=== PATIENT | female | born 1965 | race Caucasian/White ===

== ENCOUNTER 2017-03-11 08:15 | Inpatient (IN) ==
--- NOTE | 2017-03-10 21:51 | Discharge Summary ---
<SuzannemelissaLaura L - Last Filed: 03/10/17 21:47> Date of Encounter: 03/10/17 - Discharge Diagnosis (1) Pain from implanted hardware Priority: Primary Status: Acute Qualifiers: Encounter type: initial encounter Qualified Code(s): T85.848A - Pain due to other internal prosthetic devices, implants and grafts, initial encounter (2) HTN (hypertension) Priority: Secondary Status: Chronic Qualifiers: Hypertension type: essential hypertension Qualified Code(s): I10 - Essential (primary) hypertension (3) HLD (hyperlipidemia) Priority: Secondary Status: Chronic Qualifiers: Hyperlipidemia type: unspecified Qualified Code(s): E78.5 - Hyperlipidemia , unspecified (4) Anxiety Priority: Secondary Status: Chronic (5) Overactive bladder Priority: Secondary Status: Chronic - Discharge Medications Home Medications: Citalopram Hydrobromide [Citalopram HBr] 40 mg PO DAILY 09/23/16 [History] Cyclobenzaprine [Flexeril] 10 mg PO TID 09/23/16 [History] Furosemide [Lasix] 20 mg PO DAILY 09/23/16 [History] Loratadine 1 tab PO DAILY 09/23/16 [History] Losartan [Cozaar] 25 mg PO DAILY 09/23/16 [History] Lovastatin 40 mg PO HS 09/23/16 [History] Metoprolol [Lopressor] 25 mg PO BID 09/23/16 [History] Montelukast [Singulair] 10 mg PO DAILY 09/23/16 [History] Solifenacin Succinate [Vesicare] 10 mg PO DAILY 09/23/16 [History] Aspirin Enteric Coated [Aspirin EC] 325 mg PO DAILY #21 tablet.dr 03/10/17 [Rx] ClonazePAM [Clonazepam] 1 mg PO HS #5 tab.rapdis 03/10/17 [Rx] OxyCODONE Immed Rel [Roxicodone 5 MG] 5 - 10 mg PO Q6HR PRN #40 tablet 03/10/17 [Rx] Acetaminophen w/Cod 300-30 mg [Tylenol w/Codeine #3] 1 each PO Q8HR PRN [History] Aspirin [Lo-Dose Aspirin EC] 81 mg PO DAILY 03/11/17 [History] Calcium Carbonate/Vitamin D3 [Calcium 500+D Tablet Chew] 1 each PO DAILY [History] Cholecalciferol (D-3) [Vitamin D] 1,000 unit PO DAILY 03/11/17 [History] ClonazePAM [Klonopin] 1 mg PO BID PRN 03/11/17 [History] Glucosamine Sulfate Dipot Chlr [Glucosamine] 1,000 mg PO DAILY 03/11/17 [History ] Potassium Chloride [Klor-Con 10] 10 meq PO DAILY 03/11/17 [History] Allergies/Adverse Reactions: Allergies No Known Allergies Allergy (Verified 03/11/17 10:01) Primary care physician: Samanta Bowman - Patient Status Disposition: Home, Self-Care Condition: Good - Discharge Instructions Follow Up With: Ludwig Pickett MD [Partnered Physician] - 04/09/17 8:15 am Samanta Bowman MD [Primary Care Provider] - 03/25/17 9:45 am Laura Rae PAC [Physician Chief Science Officer] - 03/21/17 11:15 am - Hospital Course Hospital course: Ms. Solomon is a 52 year old female - Time Spent with Patient Total time spent providing and/or coordinating discharge services: <Ludwig Pickett - Last Filed: 03/13/17 07:59> Date of Encounter: 03/13/17 Time of Encounter: 07:58 - Discharge Diagnosis (1) Obesity, morbid, BMI 40.0-49.9 Priority: Secondary Status: Chronic (2) Pain from implanted hardware Priority: Primary Status: Acute Qualifiers: Encounter type: subsequent encounter Qualified Code(s): T85.848D - Pain due to other internal prosthetic devices, implants and grafts, subsequent encounter (3) HTN (hypertension) Priority: Secondary Status: Chronic Qualifiers: Hypertension type: essential hypertension Qualified Code(s): I10 - Essential (primary) hypertension (4) HLD (hyperlipidemia) Priority: Secondary Status: Chronic Qualifiers: Hyperlipidemia type: unspecified Qualified Code(s): E78.5 - Hyperlipidemia , unspecified (5) Anxiety Priority: Secondary Status: Chronic (6) Overactive bladder Priority: Secondary Status: Chronic Primary care physician: Samanta Bowman - Patient Status Overall status at discharge: patient is progressing back to baseline - Hospital Course Hospital course: Ms. Solomon is a 52 year old female The patient had an uneventful postoperative course. They received antibiotics and physical therapy and were discharged in stable condition. There will follow -up in the office in 2 weeks. Aspirin DVT prophylaxis - Time Spent with Patient Total time spent providing and/or coordinating discharge services:
[2017-03-11] MEDS ORDERED: CeFAZolin Pre 2,000 MG/100 ML 2,000 MG/100 ML BAG IVPB ONE (08:36)
[2017-03-11] MEDS ORDERED: Ringers Solution, Lactated 1,000 ML IVC SCH ×2 (08:45→13:52)
--- NOTE | 2017-03-11 09:04 | History & Physical Report ---
Date of Encounter: 03/11/17 Time of Encounter: 09:04 24 Hour HP Update - Instructions Instructions: If the History and Physical is less than 30 days old and was completed prior to A.M. admission and or procedure and has NOT been updated on calendar day of procedure please complete this update prior to performing procedure. - Update Patient reports changes in Medical Condition: No Changes in examination, assessment, or condition: No Changes in Medication: No Preop tests/diagnostics Reviewed: Yes Surgery Remains Indicated: Yes Consent for Planned Operative Procedure(s) Verified: Yes - Pre-Operative Checklist Preoperative Checklist Indicated: No Prophylactic Antibiotic Ordered: Yes Is VTE Prophylaxis Indicated?: Yes
[2017-03-11] MEDS ORDERED: Famotidine 20 MG/2 ML VIAL IVP ONE (09:14)
[2017-03-11] MEDS ORDERED: Gabapentin 300 MG CAPSULE PO ONE (09:15)
--- NOTE | 2017-03-11 09:28 | Anesthesia Evaluation PreOp ---
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) Other Medical History: Diabetes Type II, GERD, Other (Morbid Obesity) Anesthesia History: No Prior Anesthetic Complications : No Alcohol Use: none Drug use: none Medications and Allergies Citalopram Hydrobromide [Citalopram HBr] 40 mg PO DAILY 09/23/16 [History] Cyclobenzaprine [Flexeril] 10 mg PO TID 09/23/16 [History] Furosemide [Lasix] 20 mg PO DAILY 09/23/16 [History] Gabapentin [Neurontin] 200 mg PO TID 09/23/16 [History] Loratadine [Loratadine] 1 tab PO DAILY 09/23/16 [History] Losartan [Cozaar] 25 mg PO DAILY 09/23/16 [History] Lovastatin 40 mg PO HS 09/23/16 [History] Meloxicam [Mobic] 7.5 mg PO DAILY #10 tablet 09/23/16 [Rx] Metoprolol [Lopressor] 25 mg PO BID 09/23/16 [History] Montelukast [Singulair] 10 mg PO DAILY 09/23/16 [History] Solifenacin Succinate [Vesicare] 10 mg PO DAILY 09/23/16 [History] Aspirin Enteric Coated [Aspirin EC] 325 mg PO DAILY #21 tablet. 03/10/17 [Rx] ClonazePAM [Clonazepam] 1 mg PO HS #5 tab.rapdis 03/10/17 [Rx] OxyCODONE Immed Rel [Roxicodone 5 MG] 5 - 10 mg PO Q6HR PRN #40 tablet 03/10/17 [Rx] Allergies No Known Allergies Allergy (Verified 07/20/16 12:56) - Meds/Allergy Pre-op Review Medications Reviewed: Yes Allergies Reviewed: Yes Beta Blockers on Current Med List: Yes (Took today 0700) Anesthesia Results - Imaging EKG: report reviewed (SR) Anesthesia Exam O2 Sat Height 1.65 m Height 1.65 m Height 1.65 m Weight 130.181 kg Weight 130.181 kg Weight 130.181 kg O2 Sat by Pulse Oximetry 95 Vital Signs Temp Pulse Resp BP Pulse Ox 98.6 F 62 18 121/73 95 03/11/17 08:36 03/11/17 08:36 03/11/17 08:36 03/11/17 08:36 03/11/17 08:36 Height: 5'5 Weight: 287 lbs NPO (# of Hours): MN Pain Scale: 0 - HEENT Pupil (Motor): Pupils equal, EOMI Mallampati: III Teeth: Normal Oral Opening: Less than or equal to 3 - RD SCIENTIST RD SCIENTIST Motor: Normal RUE, Normal LUE, Normal RLE, Normal LLE, Normal Face RD SCIENTIST Sensory: Normal: RUE, RLE, LLE, Face, Deficit: LUE - Cardiac Rhythm: Regular Murmur: None JVD: No Carotid Bruit: No - Pulmonary Breath Sounds: bilateral Clear Respiratory Effort: Symmetrical Anesthesia Assess/Plan ASA Score: 3 (MO DM HTN Chol Gerd) Modified Yolis Scale for Level of Consciousness: Cooperative, oriented, and tranquil Anesthetic Plan: General, Regional Monitoring Plan: Standard Monitors Recovery Plan: PACU (Discussed GA and RA, agrees to proceed)
[2017-03-11] MEDS ORDERED: ROPIVACAINE HCL/PF 0.5% 30 ML VIAL ONE (10:01)
[2017-03-11] MEDS ORDERED: Tetracaine/PF 20 MG/2 ML AMPUL ONE (10:01)
[2017-03-11] MEDS ORDERED: Bupivacaine/Clonidine Syringe 1 EACH SYRINGE ONE (10:02)
--- NOTE | 2017-03-11 10:31 | Anesthesia Procedures ---
Date of Encounter: 03/11/17 Time of Encounter: 10: Procedures: Anesthesia - Nerve Block Procedure Date: 03/11/17 Time: 10: Allergies/Adv Reactions: [id number] Pre-op Diagnosis: L painful total knee Surgical Procedure: L TKA, revision Checklist: Correct Patient Identifier, Correct procedure, History checked Correct side: Left Blood Thinner: No Monitor Applied: EKG, BP, Pulse Oximetry Supplemental Oxygen via Nasal Cannula (L/min): 3 Sedation: Versed (mg): 2 Sedation: Fentanyl (mcg): 100 Indication: Post Op Analgesia (Dr. Pickett) Pre-op Neuro Deficits: No Block Type: Femoral, Other (iPACK) Catheter placed: No Sterile Technique: Yes Ultrasound used: Yes Anatomy identified: Yes Visual spread of Local: Yes Neuro Stimulation: No Blood on Needle Aspiration: No Smooth Injection of Local: Yes Pain with Injection of Local: No Prep: Chlorhexadine Needle: 22 x 50 mm Stimuplex, 21 x 100 mm Stimuplex Local: 0.25% Bupivicaine w/Clonidine 20 mcg/cc (20mL), Ropivacaine (0.5%, 30mL) Number of Attempts: 1 Complications: None/effective block Vitals: please see JAKE Stephen's electronic documentation for VS
[2017-03-11] MEDS ORDERED: Ondansetron 4 MG/2 ML VIAL IVP PRN (10:35)
[2017-03-11] MEDS ORDERED: *HR* Labetalol 20 MG/4 ML SYRINGE IVP PRN (10:35)
[2017-03-11] MEDS ORDERED: *HR* HYDROmorphone (PF) 1 MG/ML SYRINGE IVP PRN (10:35)
[2017-03-11] MEDS ORDERED: Lidocaine -MPF 2% 2 ML VIAL ONE (11:06)
[2017-03-11] MEDS ORDERED: *HR* Midazolam HCl 2 MG/2 ML VIAL ONE (11:06)
[2017-03-11] MEDS ORDERED: *HR* Succinylcholine 200 MG/10 ML VIAL IVP ONE (11:06)
[2017-03-11] MEDS ORDERED: *HR* FentaNYL (PF) 100 MCG/2 ML VIAL ONE (11:06)
[2017-03-11] MEDS ORDERED: *HR* Propofol 200 MG/20 ML VIAL IVP ONE ×2 (11:06→12:01)
[2017-03-11] MEDS ORDERED: ceFAZolin 1,000 MG in D5% in Water (Mini-Bag+) 100 ML IVPB ONE (11:18)
--- NOTE | 2017-03-11 11:49 | Orthopedic Operative Note ---
Date of procedure: 03/11/17 Pre-op diagnosis: Painful left total knee Post-op diagnosis: same Procedure: Procedure: Left revision total knee Estimated blood loss: 200 mL Hardware: Biomet SS K 60 left femur, 5 mm distal lateral augment 16 x 120 stem, 71 stem tibia, 12 x 80 stem. 12 constrained Yane, 6 mm medial augment, Exam Under anesthesia: Full extension and flexion to 90 degrees significant varus valgus instability Procedural Notes: Unstable total knee, aseptic loosening tibia. Operative procedure: The patient was brought to the operating room and placed on the operating room table. After general anesthesia was administered the operative knee was examined. Findings were noted in the exam under anesthesia. The operative extremity was prepped and draped in sterile surgical fashion. The patient received IV antibiotics prior to skin incision. A standard midline incision was made centered over the patella through the old incision. The incision was made through the skin and subcutaneous tissue. A medial parapatellar tendon approach was performed. Care was taken to preserve tissue along the medial aspect of the patella. And to protect the patella tendon. The deep MCL was released off the medial tibia. The infra patella fat pad was excised. Fluid was encountered this was normal joint fluid, Cultures were obtained and gram . The knee was brought into flexion the poly-was removed. The interface between the patient's femoral component and distal femur were disrupted with a osteotome and oscillating saw. Femoral component was removed removed. Attention was then turned to the tibial component. The same technique was used to remove the tibial component by disrupting the interface between the patient' s tibial component and the patients proximal tibia. The tibial component was removed. The tibia was sized to a 71 it was reamed up to a 12 x 80. Trial had good fit and fixation with a 6 mm medial augment.. The femur was sized to a 60, was reamed up to a 16 x 120. The finishing guide was seated and the box cut was made. The trial had good fit and fixation with a 5 mm distal lateral augment.. Both trial components were seated and the 12 constrained Yane was seated and secured. The knee had full flexion and full extension with no instability. Patella had excellent patella tracking and no abnormal wear. The trial components were removed. The knee sat for 2 minutes with a Betadine saline solution. It was irrigated out with 2 L of pulse irrigation. The components were assembled on the back table, the tibia cemented first followed by the femur. The 12 constrained liner was seated and secure. The knee was brought to full extension while the cement hardened. After the cement hardened the knee was irrigated out again. The extensor mechanism was closed with a running #2 Fiberwire suture and a running #2 PDS suture. The deep tissue was irrigated and closed deep with #1 PDS suture superficially with 0 PDS suture. The skin was closed with Dermabond and skin amanda. The patient was placed in a sterile dressing and postoperative brace. They were extubated and transferred to recovery room in stable condition. Anesthesia: GETA Surgeon: Ludwig Pickett Twisting Department End Finder: Laura Rae Condition: stable Disposition: PACU
[2017-03-11] MEDS ORDERED: Dexamethasone 4 MG/ML VIAL ONE (12:06)
[2017-03-11] MEDS ORDERED: Ondansetron 4 MG/2 ML VIAL ONE (12:06)
[2017-03-11 12:48] LABS: Hematocrit 35.1 % (35.3-44.9); Hemoglobin 11.4 g/dL (11.5-15.4)
[2017-03-11] MEDS ORDERED: Naloxone 0.4 MG/ML INJ IVP PRN (13:52)
[2017-03-11] MEDS ORDERED: *HR* OxyCODONE Immed Rel 5 MG TABLET PO PRN (13:52)
[2017-03-11] MEDS ORDERED: Sennosides 8.6 MG TABLET PO PRN (13:52)
[2017-03-11] MEDS ORDERED: MOM Conc 10 ML UD.LIQ PO PRN (13:52)
[2017-03-11] MEDS ORDERED: Temazepam 15 MG CAPSULE PO PRN (13:52)
[2017-03-11] MEDS: ceFAZolin 3,000 MG in D5% in Water 100 ML IVPB SCH ×2 (15:07→23:06)
[2017-03-11] MEDS: *HR* OxyCODONE Immed Rel 5 MG TABLET PO PRN ×2 (15:40→20:00)
[2017-03-11] MEDS: *HR* Enoxaparin 30 MG/0.3 ML SYRINGE SQ SCH (17:13)
[2017-03-11] MEDS ORDERED: *HR* Enoxaparin 30 MG/0.3 ML SYRINGE SQ SCH (18:00)
[2017-03-11] MEDS: Aspirin 81 MG TAB.CHEW PO SCH (19:59)
[2017-03-11] MEDS: clonazePAM 1 MG TABLET PO SCH (20:00)
[2017-03-11] MEDS: GLUCOSAMINE 1000 MG PO SCH (22:23)
[2017-03-12] MEDS: *HR* OxyCODONE Immed Rel 5 MG TABLET PO PRN ×6 (00:03→22:51)
[2017-03-12] MEDS: *HR* Enoxaparin 30 MG/0.3 ML SYRINGE SQ SCH ×2 (05:19→17:28)
--- NOTE | 2017-03-12 06:18 | Orthopedics Progress Note ---
Date of Encounter: 03/12/17 Time of Encounter: 06:18 - Assessment and Plan (1) Obesity, morbid, BMI 40.0-49.9 Current Visit: Yes Status: Chronic (2) Pain from implanted hardware Current Visit: Yes Status: Acute Qualifiers: Encounter type: subsequent encounter Qualified Code(s): T85.848D - Pain due to other internal prosthetic devices, implants and grafts, subsequent encounter (3) HTN (hypertension) Current Visit: Yes Status: Chronic Qualifiers: Hypertension type: essential hypertension Qualified Code(s): I10 - Essential (primary) hypertension (4) HLD (hyperlipidemia) Current Visit: Yes Status: Chronic Qualifiers: Hyperlipidemia type: unspecified Qualified Code(s): E78.5 - Hyperlipidemia , unspecified (5) Anxiety Current Visit: Yes Status: Chronic (6) Overactive bladder Current Visit: Yes Status: Chronic Subjective Interval history: Patient was seen this morning doing well without complaints. Afebrile vital signs stable. Operative extremity: Neurovascularly intact Dressing clean dry and intact Calves nontender Assessment and plan: Continue with postoperative care Hematocrit 35 Objective Vital signs: Vital Signs Temp Pulse Resp BP Pulse Ox 03/12/17 04:04 98.9 F 75 18 100/67 98 03/12/17 01:38 94 03/12/17 00:01 98.2 F 79 15 103/66 94 03/11/17 19:11 98.1 F 76 17 100/62 95 03/11/17 16:45 97.8 F 65 14 126/74 95 03/11/17 15:33 97.5 F L 60 18 132/82 98 03/11/17 14:36 97.7 F 60 10 117/73 96 03/11/17 14:06 97.6 F 55 11 120/68 100 03/11/17 13:39 100 03/11/17 13:38 97.6 F 61 12 117/71 99 03/11/17 13:20 98.4 F 54 14 121/72 99 03/11/17 13:10 51 16 112/71 100 03/11/17 13:00 55 16 112/68 100 03/11/17 12:50 56 14 121/76 100 03/11/17 12:40 56 16 131/72 100 03/11/17 12:30 62 16 119/77 100 03/11/17 12:25 62 16 110/69 98 03/11/17 12:20 97.0 F L 66 14 138/60 98 03/11/17 10:28 60 117/78 100 03/11/17 08:36 98.6 F 62 18 121/73 95 Intake and Output 03/11/17 03/11/17 03/12/17 15:59 23:59 07:59 Intake Total 200 / 200 520 / 520 100 / 100 Output Total 300 / 300 200 / 200 200 / 200 Balance -100 / -100 320 / 320 -100 / -100 Intake: IV Fluids 200 / 200 100 / 100 Ancef 1,000 MG In 100 / 100 Dextrose 5% (Minibag+) 100 ML 100 ML @ 200 mls/ hr IVPB ONCE ONE Rx#: [id number] Ancef 3,000 MG In 100 / 100 Dextrose 5% 100 ML @ 200 mls/hr IVPB Q8HR ELIAS Rx#: [id number] Ancef Premix 2,000 MG/100 100 / 100 ML 2,000 mg In 100 ml @ 200 mls/hr IVPB PREOP ONE Rx#:[id number] Oral 420 / 420 100 / 100 Output: Urine 200 / 200 200 / 200 Estimated Blood Loss 300 / 300 Other: Meal Dinner Percent of Meal Consumed 90% # Voids 1 Weight 130.181 kg Blood Glucose* 110 - Labs CBC & BMP: 03/11/17 12:41 Labs: Abnormal lab results Hgb 11.4 g/dL (11.5-15.4) L 03/11/17 12:41 Hct 35.1 % (35.3-44.9) L 03/11/17 12:41 POC Glucose 110 (58-89) H 03/11/17 12:25 - VTE Documentation of Mechanical Device: Venous foot pump, device Consult Discharge Plan - Plan Referrals: Samanta Bowman MD [Primary Care Provider] -
[2017-03-12 06:33] LABS: Hematocrit 33.1 % (35.3-44.9); Hemoglobin 11.1 g/dL (11.5-15.4)
[2017-03-12 06:43] LABS: BUN/Creatinine Ratio 12 (6-26); Blood Urea Nitrogen 9 mg/dL (7-20); Calcium 8.7 mg/dL (8.6-10.8); Carbon Dioxide 27 mEq/L (19-29); Chloride 104 mEq/L (98-109); Glucose 122 mg/dL (70-99); Osmolality,Calculated 288 (280-300); Potassium 3.9 mEq/L (3.5-4.5); Sodium 139 mEq/L (136-145); eGFR For African Americans > 60 (> 60); eGFR For Non-African Americans > 60 (> 60)
[2017-03-12] MEDS: clonazePAM 1 MG TABLET PO SCH ×2 (08:45→19:20)
[2017-03-12] MEDS: GLUCOSAMINE 1000 MG PO SCH ×2 (08:45→19:20)
[2017-03-12] MEDS: Cholecalciferol (D-3) 1,000 UNIT TABLET PO SCH (08:45)
[2017-03-12] MEDS: Furosemide 20 MG TABLET PO SCH (08:45)
[2017-03-12] MEDS: Loratadine 10 MG TABLET PO SCH (08:45)
[2017-03-12] MEDS: *HR* HYDROmorphone (PF) 1 MG/ML SYRINGE IVP PRN ×2 (09:36→19:30)
[2017-03-12] MEDS: Aspirin 81 MG TAB.CHEW PO SCH (19:20)
[2017-03-12] MEDS: Ondansetron 4 MG/2 ML VIAL IVP PRN (22:51)
[2017-03-13] MEDS: *HR* HYDROmorphone (PF) 1 MG/ML SYRINGE IVP PRN (02:55)
[2017-03-13] MEDS: *HR* Enoxaparin 30 MG/0.3 ML SYRINGE SQ SCH (04:58)
[2017-03-13 05:23] LABS: Hematocrit 31.1 % (35.3-44.9); Hemoglobin 10.4 g/dL (11.5-15.4)
[2017-03-13 05:37] LABS: BUN/Creatinine Ratio 12 (6-26); Blood Urea Nitrogen 9 mg/dL (7-20); Calcium 8.5 mg/dL (8.6-10.8); Carbon Dioxide 25 mEq/L (19-29); Chloride 102 mEq/L (98-109); Glucose 124 mg/dL (70-99); Osmolality,Calculated 284 (280-300); Potassium 3.4 mEq/L (3.5-4.5); Sodium 137 mEq/L (136-145); eGFR For African Americans > 60 (> 60); eGFR For Non-African Americans > 60 (> 60)
--- NOTE | 2017-03-13 08:00 | Orthopedics Progress Note ---
Date of Encounter: 03/13/17 Time of Encounter: 07:59 - Assessment and Plan (1) Obesity, morbid, BMI 40.0-49.9 Current Visit: Yes Status: Chronic (2) Pain from implanted hardware Current Visit: Yes Status: Acute Qualifiers: Encounter type: subsequent encounter Qualified Code(s): T85.848D - Pain due to other internal prosthetic devices, implants and grafts, subsequent encounter (3) HTN (hypertension) Current Visit: Yes Status: Chronic Qualifiers: Hypertension type: essential hypertension Qualified Code(s): I10 - Essential (primary) hypertension (4) HLD (hyperlipidemia) Current Visit: Yes Status: Chronic Qualifiers: Hyperlipidemia type: unspecified Qualified Code(s): E78.5 - Hyperlipidemia , unspecified (5) Anxiety Current Visit: Yes Status: Chronic (6) Overactive bladder Current Visit: Yes Status: Chronic Subjective Interval history: Patient was seen this morning doing well without complaints. Afebrile vital signs stable. Operative extremity: Neurovascularly intact Dressing clean dry and intact Calves nontender Assessment and plan: Continue with postoperative care Hematocrit 31 discharged today Objective Vital signs: Vital Signs Temp Pulse Resp BP Pulse Ox 03/13/17 06:49 98.7 F 105 18 122/82 95 03/13/17 03:00 98.8 F 104 18 115/63 97 03/12/17 23:27 98.7 F 98 20 125/76 98 03/12/17 19:43 96 03/12/17 19:30 98.9 F 90 15 124/78 96 03/12/17 19:00 97.7 F 76 18 115/59 96 03/12/17 11:28 98.6 F 85 16 113/71 93 Intake and Output 03/12/17 03/12/17 03/13/17 15:59 23:59 07:59 Intake Total 120 / 120 120 / 120 100 / 100 Output Total 400 / 400 Balance 120 / 120 -280 / -280 100 / 100 Intake: Oral 120 / 120 120 / 120 100 / 100 Output: Urine 400 / 400 Other: Meal Lunch Breakfast Percent of Meal Consumed 100% 100% - Labs CBC & BMP: 03/13/17 03:55 03/13/17 03:55 Labs: Abnormal lab results Hgb 10.4 g/dL (11.5-15.4) L 03/13/17 03:55 Hct 31.1 % (35.3-44.9) L 03/13/17 03:55 Potassium 3.4 mEq/L (3.5-4.5) L 03/13/17 03:55 Glucose 124 mg/dL (70-99) H 03/13/17 03:55 POC Glucose 110 (58-89) H 03/11/17 12:25 Calcium 8.5 mg/dL (8.6-10.8) L 03/13/17 03:55 - VTE Documentation of Mechanical Device: Venous foot pump, device Consult Discharge Plan - Plan Referrals: Ludwig Pickett MD [Partnered Physician] - 04/09/17 8:15 am Samanta Bowman MD [Primary Care Provider] - 03/25/17 9:45 am Laura Rae, PAC [Physician Welder Gas Automatic] - 03/21/17 11:15 am
[2017-03-13] MEDS: clonazePAM 1 MG TABLET PO SCH (08:51)
[2017-03-13] MEDS: GLUCOSAMINE 1000 MG PO SCH (08:52)
[2017-03-13] MEDS: *HR* OxyCODONE Immed Rel 5 MG TABLET PO PRN ×2 (08:53→13:41)
[2017-03-13] MEDS: Ondansetron 4 MG/2 ML VIAL IVP PRN (08:53)
[2017-03-13] MEDS: Loratadine 10 MG TABLET PO SCH (08:53)
[2017-03-13] MEDS: Furosemide 20 MG TABLET PO SCH (08:53)
[2017-03-13] MEDS: Cholecalciferol (D-3) 1,000 UNIT TABLET PO SCH (08:53)
[2017-03-13 14:03] VITALS: BP 115/72
== END 2017-03-13 17:41 | disposition home or self-care (01) | DRG 302 ==
LOC: SAMDAY 08:15 → 3NENU 13:56
PROVIDERS: ADMIT Orthopaedic Surgery; ATTEND Orthopaedic Surgery

== ENCOUNTER 2019-06-18 21:36 | Observation (INO) ==
[2019-06-19] MEDS ORDERED: Ondansetron ODT 4 MG TAB.RAPDIS SL PRN (01:09)
[2019-06-19] MEDS ORDERED: Naloxone 0.4 MG/ML INJ IVP PRN (01:11)
[2019-06-19 02:03] LABS: Basophils % 0.4 %; Eosinophils # 0.1 K/mcL (0.0-0.6); Eosinophils % 0.7 %; Immature Granulocytes % 0.3 % (0-4); Lymphocytes # 2.7 K/mcL (0.6-4.6); Lymphocytes % 27.6 %; Mean Corpuscular HGB Conc 32.5 g/dL (31.6-35.5); Mean Corpuscular Hemoglobin 29.1 pg (28.0-33.3); Mean Corpuscular Volume 89.7 fL (83.0-100.0); Mean Platelet Volume 10.2 fL (9.4-12.4); Monocytes # 0.9 K/mcL (0.0-1.3); Monocytes % 9.1 %; Platelet Count 237 K/mcL (140-400); Red Blood Count 4.46 M/mcL (3.82-4.97); Red Cell Distribution Width 12.4 % (11.5-14.5); Segmented Neutrophils % 61.9 %; White Blood Count 9.7 K/mcL (4.3-11.1)
[2019-06-19 02:12] LABS: INR 1.1
[2019-06-19 02:13] LABS: Activated Partial Thrombo Time 27.4 Seconds (26.0-36.0)
[2019-06-19] MEDS: Ibuprofen 800 MG TABLET PO PRN ×2 (02:18→10:40)
[2019-06-19 02:19] LABS: Alanine Aminotransferase 27 Units/L (7-52); Albumin 3.8 g/dL (3.5-5.7); Albumin/Globulin Ratio 1.7 (1.1-2.2); Alkaline Phosphatase 71 Units/L (34-104); Aspartate Amino Transferase 15 Units/L (13-39); BUN/Creatinine Ratio 31 (6-26); Bilirubin,Total 0.4 mg/dL (0.3-1.0); Blood Urea Nitrogen 20 mg/dL (6-20); Calcium 8.8 mg/dL (8.6-10.3); Carbon Dioxide 26 mEq/L (23-29); Chloride 104 mEq/L (98-107); Cholesterol 157 mg/dL (< 200); Globulin 2.3 g/dL (2.4-3.5); Glucose 116 mg/dL (70-105); HDL Cholesterol 53 mg/dL (40-59); LDL Cholesterol,Calculated 91 mg/dL (0-99); Magnesium 2.2 mg/dL (1.6-2.6); Osmolality,Calculated 286 (280-300); Phosphorous 4.6 mg/dL (2.7-4.5); Sodium 136 mEq/L (136-145); Total Protein 6.1 g/dL (6.4-8.9); Triglycerides 66 mg/dL (< 150); eGFR For African Americans > 60 (> 60); eGFR For Non-African Americans > 60 (> 60)
[2019-06-19] MEDS: Acetaminophen 325 MG TABLET PO PRN ×2 (08:59→14:55)
[2019-06-19] MEDS ORDERED: clonazePAM 1 MG TABLET PO SCH (09:00)
[2019-06-19] MEDS ORDERED: Aspirin Enteric Coated 81 MG Tablet PO SCH (09:00)
[2019-06-19] MEDS ORDERED: Loratadine 10 MG TABLET PO SCH (09:00)
[2019-06-19] MEDS ORDERED: Furosemide 20 MG TABLET PO SCH (09:00)
[2019-06-19] MEDS ORDERED: Cholecalciferol (D-3) 1,000 UNIT (25MCG) TABLET PO SCH (09:00)
[2019-06-19 09:27] LABS: Bilirubin,Urine Negative (Negative); Blood,Urine Negative (Negative); Clarity,Urine Clear (Clear); Color,Urine Yellow (Yellow); Glucose,Urine (UA) Normal (Normal); Ketones,Urine Negative (Negative); Leukocyte Esterase,Urine Trace (Negative); Nitrite,Urine Negative (Negative); Protein,Urine Negative (Neg-Trace); Specific Gravity,Urine > 1.030 (1.010-1.025); Urobilinogen,Urine Normal (Normal)
[2019-06-19 09:29] LABS: Bacteria,Urine None Seen per hpf (None-Few); Hyaline Casts,Urine None Seen per lpf (None-Few); Squamous Epithelial Cell,Urine Many per lpf (None-Few)
[2019-06-19] MEDS ORDERED: Regadenoson 0.4 MG/5 ML SYRINGE IVP ONE (09:41)
[2019-06-19] MEDS ORDERED: (Flovent Diskus] 50 MCG) IH SCH (10:00)
[2019-06-19 15:04] VITALS: BP 119/75
== END 2019-06-19 15:58 | disposition home or self-care (01) ==
LOC: 3BNU → SUATTDRO 23:30
PROVIDERS: ADMIT Internal Medicine Nephrology; ATTEND Family Medicine

== ENCOUNTER 2021-11-30 22:18 | Observation (INO) ==
[2021-12-01] MEDS ORDERED: Ondansetron 4 MG/2 ML VIAL IVP PRN (04:20)
[2021-12-01] MEDS ORDERED: Naloxone 0.4 MG/ML INJ IVP PRN (04:20)
[2021-12-01] MEDS ORDERED: Aspirin 81 MG TAB.CHEW PO SCH (09:00)
[2021-12-01 09:14] LABS: BUN/Creatinine Ratio 21 (6-26); Blood Urea Nitrogen 14 mg/dL (6-20); Calcium 8.7 mg/dL (8.6-10.3); Carbon Dioxide 24 mEq/L (23-29); Chloride 110 mEq/L (98-107); Glucose 96 mg/dL (70-105); Osmolality,Calculated 294 (280-300); Potassium 4.3 mEq/L (3.5-5.1); Sodium 142 mEq/L (136-145); Troponin I < 0.03 ng/mL (< 0.04); eGFR For African Americans > 60 (> 60); eGFR For Non-African Americans > 60 (> 60)
[2021-12-01] MEDS ORDERED: Regadenoson 0.4 MG/5 ML SYRINGE IVP ONE (11:17)
[2021-12-01 14:42] VITALS: BP 138/83; PULSE 69; TEMP 98; O2SAT 98
== END 2021-12-01 15:32 | disposition home or self-care (01) ==
LOC: 3BNU
PROVIDERS: ADMIT Internal Medicine; ATTEND Internal Medicine